=== PATIENT | male | born 1930 | race Caucasian/White ===

== ENCOUNTER 2017-02-24 13:07 | Inpatient (IN) | payer OTHER ==
[~2017-02-24] VITALS: Ht 182.9 cm; Wt 82.3 kg
--- NOTE | 2017-02-24 13:36 | DIAGNOSTIC IMAGING REPORT ---
PROCEDURE: CT HEAD WITHOUT CONTRAST INDICATION: TRAUMA/INJURY TECHNIQUE: Axial CT images were acquired through the head. Coronal and sagittal reformations were created. COMPARISON: None. FINDINGS: Moderate cerebral cortical atrophy. Minor hypodensity in the periventricular and subcortical white matter. Tiny focal patch of hypodensity in the right frontal lobe schmidt radiata. No focal cortical defects. Dystrophic bilateral basal ganglia calcification. No intracranial hemorrhage or extraaxial fluid collections. Ventricles are normal in size, shape and position. There is no mass, mass effect or midline shift. The sanchez-white matter differentiation is normal. There is no edema. Minimal calcific atherosclerosis of the intracranial internal carotid arteries. The calvarium is intact. The paranasal sinuses and mastoid air cells are normally aerated. The extracranial soft tissues and orbits are normal. IMPRESSION: 1. No CT evidence of acute intracranial process. 2. Age related involutional changes. 3. Small patch of chronic microvascular ischemic change in the right frontal lobe white matter. Otherwise minimal evidence of chronic microvascular ischemia. 4. Findings discussed with Dr. Back at [address] scans at this facility use dose modulation, iterative reconstruction, and/or weight-based dosing when appropriate to reduce radiation dose to as low as reasonably achievable.
--- NOTE | 2017-02-24 13:57 | DIAGNOSTIC IMAGING REPORT ---
PROCEDURE: XR HIP 2VW W W/O AP PELVIS-LT INDICATION: TRAUMA/INJURY TECHNIQUE: AP view of the pelvis and hips with lateral view of the left hip. COMPARISON: 07/25/2016 FINDINGS: LEFT HIP: Normal mineralization. No fracture. Normal bony alignment. Severe osteoarthritic degenerative change at the hip joint. No unusual adjacent calcifications. PELVIS: Normal mineralization. Impacted, mildly displaced fracture involving the right superior pubic ramus and probably nondisplaced fracture involving the right inferior pubic ramus. No definite left-sided pelvic fractures. Normal alignment. Moderate degenerative change at the right hip joint and L5-S1 articulation. The visible bowel gas pattern and pelvic soft tissues appear normal. IMPRESSION: 1. Intact left hip with severe osteoarthritic changes. 2. Right superior and probably inferior pubic rami fractures.
--- NOTE | 2017-02-24 14:01 | DIAGNOSTIC IMAGING REPORT ---
PROCEDURE: XR CHEST 1 VIEW INDICATION: HYPOXIA TECHNIQUE: Single view chest. 01:31 hours COMPARISON: 03/15/2016 FINDINGS: Normal heart. No central vascular congestion. Asymmetric right hemidiaphragm elevation, more extensive compared to the previous studies. Diffuse interstitial thickening bilaterally. No pneumothorax or visible effusion. Atelectatic change at the visible right lower lobe. Surgical clips in the left axilla. Grossly intact osseous structures. IMPRESSION: 1. Diffuse coarsening of interstitial markings may indicate interstitial inflammation/pneumonitis, or interstitial edema. Correlate clinically. 2. No evidence of acute trauma to the chest. 3. Chronic asymmetric right hemidiaphragm elevation with right base atelectasis.
--- NOTE | 2017-02-24 14:58 | ED ORDER SUMMARY ---
..... Patient: ERNIE CEVALLOS OrderSheet [facility] VisitID: [id number] [address] [place] [address] 86y, M Registration Date/Time: 02/24/2017 ORDER SHEET Weight: 86.1 kg (stated) Allergies: Muscle relaxer, Atorvastatin GENERAL ORDERS: Chest 1V Urgent (13:12 02/24/2017 Unique ROSEN) (Ack 13:19 Renny) (13:33 SReitz R.N.) Carpenter And Joiner (Continuous) (13:13 02/24/2017 Unique ROSEN) (13:33 SReitz R.N.) CT Head wo Cont Urgent (13:13 02/24/2017 Unique ROSEN) (Ack 13:19 Renny) (13:33 SReitz R.N.) Hip 2V Left w AP Pelvis Urgent (13:13 02/24/2017 Unique ROSEN) (Ack 13:19 Renny) (13:33 SReitz R.N.) CBC w Diff Urgent (13:13 02/24/2017 Unique ROSEN) (Ack 13:19 Renny) (13:21 SReitz R.N.) CMP Urgent (13:13 02/24/2017 Unique ROSEN) (Ack 13:19 Renny) (13:21 SReitz R.N.) UA-Culture if indicated Urgent (13:13 02/24/2017 Unique ROSEN) (Ack 13:19 Renny) PT with INR Urgent (13:13 02/24/2017 Unique ROSEN) (Ack 13:19 Renny) (13:21 SReitz R.N.) PTT Urgent (13:13 02/24/2017 Unique ROSEN) (Ack 13:19 Renny) (13:21 SReitz R.N.) CPK Urgent (13:13 02/24/2017 Unique ROSEN) (Ack 13:19 Renny) (13:21 SReitz R.N.) Troponin-I Urgent (13:13 02/24/2017 Unique ROSEN) (Ack 13:19 Renny) (13:21 SReitz R.N.) Oxygen (2 L/min) (NC) (13:13 02/24/2017 Unique ROSEN) (13:33 Elle Dejesus.N.) Pulse oximeter (13:13 02/24/2017 Unique ROSEN) (13:21 Elle Dejesus.N.) EKG - ER Stat (13:13 02/24/2017 Unique ROSEN) (Ack 13:19 Renny) (13:33 Elle Dejesus.N.) Lumbar Spine 2 or 3V Urgent (13:48 02/24/2017 Renny verbal order read back to Unique ROSEN) (13:49 Renny) MEDICATION ORDERS: IV FLUIDS: IV Saline Lock (13:13 02/24/2017 Unique ROSEN) (Ack 13:21 Elle Dejesus.N.) Dilaudid IV 0.5 mg (HIGH ALERT MEDICATION, NOW) (14:09 02/24/2017 Elle Chow verbal order read back to Unique ROSEN) (14:09 Elle Dejesus.N.) Dilaudid IV 0.5 mg (HIGH ALERT MEDICATION, NOW) (15:39 02/24/2017 Elle Dejesus.Maya verbal order read back to Unique ROSEN) (15:39 Elle R.N.) ORDER SHEET NOTES: [Electronically signed by Kemi Cali R.N. (17:04 02/24/2017)] [Electronically signed by Ras Back MD (20:41 02/24/2017)] [Electronically locked/signed by Kemi Cali R.N. (17:04 02/24/2017)]
--- NOTE | 2017-02-24 14:58 | ED CLINICAL REPORT ---
Clinical Report - Physicians/Mid Levels [facility] [address] [place] [place] [address] 02/24/2017 13:07 Patient: ERNIE CEVALLOS Time Seen: 13:12. Arrived- By ambulance. Historian- patient and EMS personnel. HISTORY OF PRESENT ILLNESS Location of injuries- left hip. Chief Complaint: FALL. The injury occurred just prior to arrival. Fell. Occurred at home. ( patient says that he had an improvised scaffolding that was about 6 Feet off of the ground. He miss stepped and fell to the ground landing flat on his back. He complains of severe pain in his pelvis and hips.). The patient complains of severe pain. No blow to the head, neck pain or loss of consciousness. Prehospital Treatment: ( EMS report that his oxygen saturations were in the high 80s when they first assessed him while he was lying supine.). REVIEW OF SYSTEMS No chills, fever, sweats, calf pain or chest pain. No cough, pedal edema, palpitations, abdominal pain or constipation. No diarrhea, nausea, vomiting or urinary problems. He has had difficulty breathing (chronically - He attributes this to a chronically elevated right hemidiaphragm). The patient has also had orthopnea. All systems otherwise negative, except as recorded above. PAST HISTORY PCP - JORGE MCNULTY Problems: Hypertension. Back Pain. Phimosis. Herniated Disk. CVA - Cerebrovascular Accident. PVC - Premature Venticular Complex(s). Hyperlipidemia. Arterial bruit. Dyspnea. Left hip pain. Prediabetic. Carpal Tunnel Syndrome. Osteoarthritis. Anemia. Abdominal Pain. Impingement syndrome of shoulder region. Sciatica. Medications: Levothyroxine Sodium Oral 50 mcg, daily. ProAir HFA Inhalation. Tamsulosin HCl Oral 0.4 mg, daily. CeleBREX Oral 200 mg, daily. MetFORMIN HCl Oral 500 mg, 2x a day. Pravastatin Sodium Oral 10 mg, at bedtime. Aspirin Oral (Tablet Chewable 81 mg) 1 tablet, daily. Fluticasone Propionate Nasal. Multivitamins Oral. Calcium-Vitamin D Oral. vitmain c plus. Nitroglycerin Sublingual, as needed. Metamucil Oral. Losartan Potassium Oral 50 mg, daily. Allergies: Atorvastatin. Muscle relaxer. SOCIAL HISTORY No alcohol use or drug use. Residence: he is the primary caregiver for his spouse who suffers from multiple medical issues. Is a local resident. Resides in a house. He lives with spouse. ADDITIONAL NOTES The nursing notes have been reviewed. PHYSICAL EXAM Vital Signs: 02/24/2017 13:12 BP: 151/87. HR: 110. RR: 18. O2 saturation: 98%. Temp: 97.5 F. Have been reviewed. Appearance: Alert. No acute distress. Head: Head non-tender. No swelling of head. Eyes: Pupils equal, round and reactive to light. EOM intact. ENT: No dental injury. Pharynx normal. Neck: Painless ROM. Non-tender. CVS: Heart sounds normal. Pulses normal. Respiratory: Breath sounds normal. Chest nontender. Abdomen: No visible injury. Soft and nontender. Bowel sounds normal. No organomegaly. No mass. Back: No tenderness. Skin: Skin intact. Skin warm and dry. Extremities: Pelvis: moderate tenderness with compression. Limited ROM right hip secondary to pain; limited ROM left hip secondary to pain. Neurovascular intact distally. Normal rectal exam. Right hip. Limited ROM secondary to pain (diminished flexion and internal rotation). Neurovascular intact distally. Left hip. Limited ROM secondary to pain (diminished flexion and internal rotation). Neurovascular intact distally. LABS, X-RAYS, AND EKG EKG: Rate: 86. Frequent ectopic beats. Premature ventricular contractions. First-degree atrioventricular block. Changes present when compared to prior EKG. (no PVCs were noted on a previous study of 19 January 2013). The study has been independently viewed by me. LS-Spine X-rays: (IMPRESSION: 1. Intact lumbar spine. 2. Stable alignment compared to the prior study. 3. Large anterior osteophytes. 4. Right superior pubic ramus fracture seen. 5. Aortic atherosclerosis.). The X-rays were interpreted by the radiologist and contemporaneously by me. Chest X-ray: (IMPRESSION: 1. Diffuse coarsening of interstitial markings may indicate interstitial inflammation/pneumonitis, or interstitial edema. Correlate clinically. 2. No evidence of acute trauma to the chest. 3. Chronic asymmetric right hemidiaphragm elevation with right base atelectasis.). The X-rays were interpreted by the radiologist and contemporaneously by me. Lt Hip X-ray: (IMPRESSION: 1. Intact left hip with severe osteoarthritic changes. 2. Right superior and probably inferior pubic rami fractures.). The X-rays were interpreted by the radiologist and contemporaneously by me. CT Head: (IMPRESSION: 1. No CT evidence of acute intracranial process. 2. Age related involutional changes. 3. Small patch of chronic microvascular ischemic change in the right frontal lobe white matter. Otherwise minimal evidence of chronic microvascular ischemia.). The study was interpreted by the radiologist and contemporaneously by me. Laboratory Tests: CBC w Diff: (CRISTIANO: 02/24/2017 13:20) ( MsgRcvd 02/24/2017 13:37) Final results Test Result Flag Units (Reference) WHITE BLOOD COUNT 6.9 K/uL (4.5-11.5) RED BLOOD COUNT 3.95 L M/uL (4.50-5.90) HEMOGLOBIN 12.1 L gm/dL (13.5-17.5) HEMATOCRIT 36.4 L % (41.0-53.0) MEAN CELL VOLUME 92 fL (80-100) MEAN CORPUSCULAR HGB 31 pg (26-34) MEAN CORPUSCULAR HGB CONC 33 g/dL (31-37) RED CELL DISTRIBUTION WIDTH 14.1 % (11.6-14.8) PLATELET COUNT 177 K/uL (150-400) NEUTROPHIL % 75.9 H % (50-75) LYMPH % 16.5 L % (25-40) MONO % 6.7 % (3-14) EOSINOPHIL % 0.6 % (0-4) BASOPHIL % 0.3 % (0-2) PT with INR: (CRISTIANO: 02/24/2017 13:20) ( MsgRcvd 02/24/2017 13:50) Final results Test Result Flag Units (Reference) INR 1.1 (0.8-1.2) Low Intensity Therapy: INR 1.5-2.0 PT range 18.5-23.1Mod.Intensity Therapy: INR 2.0-3.0 PT range 23.1-31.5High Intensity Therapy: INR 2.5-3.5 PT range 27.4-35.5High Intensity Therapy 2: INR 3.0-4.0 PT range 31.5-39.3 APTT 33 SECONDS (24-34) CMP: (CRISTIANO: 02/24/2017 13:20) ( MsgRcvd 02/24/2017 14:09) Final results Test Result Flag Units (Reference) GLUCOSE 137 H mg/dL (70-110) BUN 28 H mg/dL (7-18) CREATININE 1.5 H mg/dL (0.6-1.3) Estimated GFR 47.05 mL/min Estimated GFR- 57.03 mL/min Note: Persistent reduction over 3 months in eGFR<60 mL/min/1.73 m2 defines CKD. Patients with eGFR values>=60 mL/min/1.73 m2 may also have CKD if evidence ofpersistent proteinuria. Additional information may be foundat www.kidney.org. SODIUM 141 mmol/L (136-145) POTASSIUM 4.3 mmol/L (3.5-5.1) CHLORIDE 106 mmol/L (98-107) CARBON DIOXIDE 21 mmol/L (21-32) CALCIUM 8.6 mg/dL (8.5-10.1) TOTAL PROTEIN 6.7 g/dL (6.4-8.2) ALBUMIN 3.5 g/dL (3.3-5.0) BILIRUBIN, TOTAL 0.7 mg/dL (0.0-1.0) ALKALINE PHOSPHATASE 93 U/L (46-116) AST (SGOT) 30 U/L (15-37) ALT (SGPT) 57 U/L (12-78) CPK 370 H U/L (24-260) TROPONIN I <0.05 ng/mL (0.00-1.5) TROPONIN REFERENCE RANGE:<0.1 NEGATIVE0.1-1.5 INDETERMINANT>1.5 POSITIVE CK-MB 4.4 H ng/mL (0.5-3.2) %CKMB 1.2 % (0.0-4.0) . PROGRESS AND PROCEDURES Course of Care: Patient is stable. Discussed case with hospitalist, (Jcarlos). Reviewed test results and need for additional work-up. Agreed upon treatment plan, need for patient follow-up and decision to admit. Health care provider will see patient in hospital. Patient/family counseled. Disposition orders written (in [facility]). Disposition: Admitted. CLINICAL IMPRESSION Right superior ramus and inferior ramus pubic fracture. Fall from scaffold and on same level by stumbling. (Electronically signed by Ras Back MD 02/24/2017 20:41)
--- NOTE | 2017-02-24 14:58 | ED NURSING NOTES ---
Clinical Report - Nurses [facility] [address] [place] [address] 02/24/2017 13:07 Patient: ERNIE CEVALLOS TRIAGE Triage time 13:12. Acuity: LEVEL 2. Chief Complaint: FALL (Pt. states he was approx. 6 feet off the ground on a plank when he fell off. He denies LOC, neck pain at this time.). Alert. No acute distress. SEPSIS SCREEN: Sepsis Screen. Negative (no infection suspected/documented). HOANG COMA SCORE: Hoang Coma Scale: 15- eyes open spontaneously (4); best verbal response- oriented x 4 (5); best motor response- obeys commands (6). --13:19 Keim Cali R.N. 13:12 02/24/17. BP: 151/87. HR: 110. RR: 18. O2 saturation: 98%. Temp: 97.5 F. Pain level now 5/10. --13:19 Kemi Cali R.N. Weight: 86.1 kg stated. Height/Length: 72 inches Per Patient. BMI: 25.8. --13:18 Kemi Cali R.N. Medications Losartan Potassium Oral 50 mg, daily. --14:30 Kemi Cali R.N. Metamucil Oral. --14:34 Kemi Cali R.N. Nitroglycerin Sublingual, as needed. --14:35 Kemi Cali R.N. vitmain c plus. --14:35 Kemi Cali R.N. Calcium-Vitamin D Oral. --14:35 Kemi Cali R.N. Multivitamins Oral. --14:35 Kemi Cali R.N. Fluticasone Propionate Nasal. --14:35 Kemi Cali R.N. Aspirin Oral (Tablet Chewable 81 mg) 1 tablet, daily. --14:36 Kemi Cali R.N. Pravastatin Sodium Oral 10 mg, at bedtime. --14:36 Kemi Cali R.N. MetFORMIN HCl Oral 500 mg, 2x a day. --14:36 Kemi Cali R.N. CeleBREX Oral 200 mg, daily. --14:36 Kemi Cali R.N. Tamsulosin HCl Oral 0.4 mg, daily. --14:37 Kemi Cali R.N. ProAir HFA Inhalation. --14:37 Kemi Cali R.N. Levothyroxine Sodium Oral 50 mcg, daily. --14:37 Kemi Cali R.N. Allergies Muscle relaxer. --13:49 Kemi Cali R.N. Atorvastatin. --14:37 Kemi Cali R.N. History Arrived by EMS. Historian: patient. Unaccompanied. Primary physician (Dr. Garber). Location of injuries: lower back and left hip. This occurred today. Trauma activation: Modified Trauma Activation. called at 1310. PAST MEDICAL HX: Immunizations: up-to-date. SOCIAL HX: Smoker- current status unknown. NUTRITIONAL RISK ASSESSMENT: The nutritional risk assessment revealed no deficiencies. FUNCTIONAL ASSESSMENT: Functional assessment: no impairments noted. LEARNING NEEDS ASSESSMENT: The learning needs assessment revealed no barriers. --13:19 Kemi Cali R.N. Treatment CASHIER ASSISTANT: (backboard). --13:21 Kemi Cali R.N. PROBLEMS: Hypertension. Back Pain. Phimosis. Herniated Disk. CVA - Cerebrovascular Accident. PVC - Premature Venticular Complex(s). Hyperlipidemia. Arterial bruit. Coronary Artery Disease. Dyspnea. Left hip pain. Prediabetic. Carpal Tunnel Syndrome. Osteoarthritis. Anemia. Abdominal Pain. Impingement syndrome of shoulder region. Sciatica. --14:39 Kemi Cali R.N. Interventions ID band on patient. Transported via stretcher. --13:19 Kemi Cali R.N. PHYSICAL ASSESSMENT 13:12. To room via stretcher. GENERAL / NEURO / PSYCH: Alert. Oriented X 4. Appears in no acute distress. HEENT: Pupils equal, round and reactive to light. RESPIRATORY: Respirations not labored. CVS: Pulses within normal limits. Capillary refill less than 2 seconds. GI / : Abdomen soft and nontender. SKIN: Skin intact. Skin is warm and dry. --13:20 Kemi Cali R.N. NURSING PROGRESS NOTES 13:12. Patient gowned. Two patient identifiers checked. Call light placed in reach. Side rails up x 2. Bed placed in lowest position. Brakes of bed on. Patient ready for evaluation- chart flagged. --13:20 Kemi Cali R.N. 13:15 02/24/2017 Site #1 started via IV in the right antecubital space with an 18g angiocath, with aseptic technique and good blood return; one attempt. Blood drawn: rainbow set. Labeled in the presence of the patient and sent to the lab. Saline lock flushed with 10 mL saline. --13:20 Kemi Cali R.N. Patient transported to CT by stretcher with tech. (13:15). --13:25 Kemi Cali R.N. EKG time: (13:55). EKG was performed by a tech and shown to the ED physician. --14:00 Huong Vasquez 14:00 02/24/17. BP: 143/59. HR: 100. RR: 20. O2 saturation: 98%. --14:08 Kemi Cali R.N. 14:07 02/24/2017 Dilaudid (HYDROmorphone HCl PF) IVP 0.5 mg given over 1 minute(s) via site #1. Allergies verified, confirmed 5 rights and sedative warning given to the patient. IV patency established. IV site checked: no pain, redness, or swelling. IV flushed thoroughly pre- and post-medication administration. --14:09 Kemi Cali R.N. 14:16 02/24/2017 Dilaudid IVP Response: no adverse reaction pain is improving. The patient feels better. --14:16 Kemi Cali R.N. 14:30 02/24/17. BP: 118/82. HR: 115. RR: 26. O2 saturation: 96%. --14:40 Kemi Cali R.N. 15:35. ( Pt. reports being in "alot of pain." Notified provider orders recieved.). --15:38 Kemi Cali R.N. 15:39 02/24/2017 Dilaudid (HYDROmorphone HCl PF) IVP 0.5 mg given over 1 minute(s) via site #1. Allergies verified, confirmed 5 rights and sedative warning given to the patient. IV patency established. IV site checked: no pain, redness, or swelling. IV flushed thoroughly pre- and post-medication administration. --15:39 Kemi Cali R.N. 15:40 02/24/17. BP: 127/61. HR: 106. RR: 21. O2 saturation: 92% on nasal cannula at 2 liters/minute. --15:40 Kemi Cali R.N. DISPOSITION / DISCHARGE Report was given to a nurse via a phone call. Report included patient's care, treatment, medications, reviewed medication reconcilliation, and condition (including any recent changes or anticipated changes). All questions were answered. --16:47 Kemi Cali R.N. 16:58 02/24/2017 Site #[address] upon admission; patent, no pain and no signs of infiltration; flushes easily. --16:58 Kemi Cali R.N. 16:57 02/24/17. BP: 110/67. HR: 100. RR: 26. O2 saturation: 95%. Temp: 97.7 F. Pain level now 3/10. --16:58 Kemi Cali R.N. Admitted to Acute Care. Transported via stretcher by tech with O2. Patient's personal items; items were placed in belongings bag, given to the patient and transported with the patient. --16:59 Kemi Cali R.N. Departure time: 17:00. --17:04 Kemi Cali R.N. Locked/Released at 02/24/2017 17:04 by Kemi Cali R.N.
--- NOTE | 2017-02-24 14:58 | ED ORDER SUMMARY ---
..... Patient: ERNIE CEVALLOS OrderSheet [facility] VisitID: [id number] [address] [place] [address] 86y, M Registration Date/Time: 02/24/2017 ORDER SHEET Weight: 86.1 kg (stated) Allergies: Muscle relaxer, Atorvastatin GENERAL ORDERS: Chest 1V Urgent (13:12 02/24/2017 Unique ROSEN) (Ack 13:19 Renny) (13:33 SReitz R.N.) Barber Instructor (Continuous) (13:13 02/24/2017 Unique ROSEN) (13:33 SReitz R.N.) CT Head wo Cont Urgent (13:13 02/24/2017 Unique ROSEN) (Ack 13:19 Renny) (13:33 SReitz R.N.) Hip 2V Left w AP Pelvis Urgent (13:13 02/24/2017 Unique ROSEN) (Ack 13:19 Renny) (13:33 SReitz R.N.) CBC w Diff Urgent (13:13 02/24/2017 Unique ROSEN) (Ack 13:19 Renny) (13:21 SReitz R.N.) CMP Urgent (13:13 02/24/2017 Unique ROSEN) (Ack 13:19 Renny) (13:21 SReitz R.N.) UA-Culture if indicated Urgent (13:13 02/24/2017 Unique ROSEN) (Ack 13:19 Renny) PT with INR Urgent (13:13 02/24/2017 Unique ROSEN) (Ack 13:19 Renny) (13:21 SReitz R.N.) PTT Urgent (13:13 02/24/2017 Unique ROSEN) (Ack 13:19 Renny) (13:21 SReitz R.N.) CPK Urgent (13:13 02/24/2017 Unique ROSEN) (Ack 13:19 Renny) (13:21 SReitz R.N.) Troponin-I Urgent (13:13 02/24/2017 Unique ROSEN) (Ack 13:19 Renny) (13:21 SReitz R.N.) Oxygen (2 L/min) (NC) (13:13 02/24/2017 Unique ROSEN) (13:33 Elle Dejesus.N.) Pulse oximeter (13:13 02/24/2017 Unique ROSEN) (13:21 Elle Dejesus.N.) EKG - ER Stat (13:13 02/24/2017 Unique ROSEN) (Ack 13:19 Renny) (13:33 Elle Dejesus.N.) Lumbar Spine 2 or 3V Urgent (13:48 02/24/2017 Renny verbal order read back to Unique ROSEN) (13:49 Renny) MEDICATION ORDERS: IV FLUIDS: IV Saline Lock (13:13 02/24/2017 Unique ROSEN) (Ack 13:21 Elle Dejesus.N.) Dilaudid IV 0.5 mg (HIGH ALERT MEDICATION, NOW) (14:09 02/24/2017 Elle Chow verbal order read back to Unique ROSEN) (14:09 Elle Dejesus.N.) Dilaudid IV 0.5 mg (HIGH ALERT MEDICATION, NOW) (15:39 02/24/2017 Elle Dejesus.Maya verbal order read back to Unique ROSEN) (15:39 Elle R.N.) ORDER SHEET NOTES: [Electronically signed by Kemi Cali R.N. (17:04 02/24/2017)] [Electronically signed by Ras Back MD (20:41 02/24/2017)] [Electronically locked/signed by Kemi Cali R.N. (17:04 02/24/2017)]
--- NOTE | 2017-02-24 15:11 | DIAGNOSTIC IMAGING REPORT ---
PROCEDURE: XR LUMBAR SPINE 2 OR 3 VIEWS INDICATION: Fall off tractor TECHNIQUE: Three views of the lumbar spine COMPARISON: 07/25/2016 FINDINGS: No visible vertebral body fracture. Large anterior osteophytes, particularly L2-L4. Slight anterolisthesis L4-5. Trace retrolisthesis L2 on three. Otherwise normal alignment. Extensive ossification in the posterior elements from L3-S1. Calcification of the L4-5 disc. No acute appearing changes. Partially visualized is the right superior pubic ramus fracture. Heavy abdominal aortic atherosclerosis. Bowel gas pattern is normal. IMPRESSION: 1. Intact lumbar spine. 2. Stable alignment compared to the prior study. 3. Large anterior osteophytes. 4. Right superior pubic ramus fracture seen. 5. Aortic atherosclerosis.
[2017-02-24 17:26] VITALS: BP 136/57
[2017-02-24 20:42] VITALS: BP 123/71
--- NOTE | 2017-02-24 20:42 | ED MAR SUMMARY ---
..... Medication Administration Record [facility] [address] [place] [address] Patient: RENIE CEVALLOS Visit ID: [id number] 86y, M Weight: 86.1 kg Height/Length: 72 in BMI: 25.8 ALLERGIES: Muscle relaxer, Atorvastatin Given 14:07 02/24/2017 Kemi Cali R.N. Medication Administered: DILAUDID [IVP] (HYDROMORPHONE HCL PF), Dose: 0.5 mg IVP over 1 minute(s), Site: #1 right AC. Medication Ordered: Dilaudid IV 0.5 mg (HIGH ALERT MEDICATION, NOW). Given 15:39 02/24/2017 Kemi Cali R.N. Medication Administered: DILAUDID [IVP] (HYDROMORPHONE HCL PF), Dose: 0.5 mg IVP over 1 minute(s), Site: #1 right AC. Medication Ordered: Dilaudid IV 0.5 mg (HIGH ALERT MEDICATION, NOW).
--- NOTE | 2017-02-24 20:42 | ED MED RECONCILIATION SUMMARY ---
Patient: ERNIE CEVALLOS Medication Reconciliation Report [facility] VisitID: [id number] [address] [place] [address] 86y, M Registration Date/Time: 02/24/2017 Weight: 86.1 kg Height/Length: 72 in. BMI: 25.8 ALLERGIES: Atorvastatin, Muscle relaxer The patient's Home Medications are listed below: THE FOLLOWING MEDICATIONS NEED TO BE RECONCILED: Aspirin Oral (81 mg) 1 tablet, daily Calcium-Vitamin D Oral CeleBREX Oral 200 mg, daily Fluticasone Propionate Nasal Levothyroxine Sodium Oral 50 mcg, daily Losartan Potassium Oral 50 mg, daily Metamucil Oral MetFORMIN HCl Oral 500 mg, 2x a day Multivitamins Oral Nitroglycerin Sublingual Pravastatin Sodium Oral 10 mg, at bedtime ProAir HFA Inhalation Tamsulosin HCl Oral 0.4 mg, daily vitmain c plus The source(s) of the original Home Medication information: Not obtained. The following Medications were given to the patient in the Emergency Department: Dilaudid [IVP] IVP 0.5 mg, administered: 02/24/2017 2:07:00 PM Dilaudid [IVP] IVP 0.5 mg, administered: 02/24/2017 3:39:00 PM The following Medications were prescribed to the patient: None.
--- NOTE | 2017-02-24 20:42 | ED MED RECONCILIATION SUMMARY ---
Patient: ERNIE CEVALLOS Medication Reconciliation Report [facility] VisitID: [id number] [address] [place] [address] 86y, M Registration Date/Time: 02/24/2017 Weight: 86.1 kg Height/Length: 72 in. BMI: 25.8 ALLERGIES: Atorvastatin, Muscle relaxer The patient's Home Medications are listed below: THE FOLLOWING MEDICATIONS NEED TO BE RECONCILED: Aspirin Oral (81 mg) 1 tablet, daily Calcium-Vitamin D Oral CeleBREX Oral 200 mg, daily Fluticasone Propionate Nasal Levothyroxine Sodium Oral 50 mcg, daily Losartan Potassium Oral 50 mg, daily Metamucil Oral MetFORMIN HCl Oral 500 mg, 2x a day Multivitamins Oral Nitroglycerin Sublingual Pravastatin Sodium Oral 10 mg, at bedtime ProAir HFA Inhalation Tamsulosin HCl Oral 0.4 mg, daily vitmain c plus The source(s) of the original Home Medication information: Not obtained. The following Medications were given to the patient in the Emergency Department: Dilaudid [IVP] IVP 0.5 mg, administered: 02/24/2017 2:07:00 PM Dilaudid [IVP] IVP 0.5 mg, administered: 02/24/2017 3:39:00 PM The following Medications were prescribed to the patient: None.
--- NOTE | 2017-02-24 20:42 | ED DISCHARGE INSTRUCTIONS ---
Patient: ERNIE CEVALLOS General Instructions [facility] VisitID: [id number] [place] [address] 86y, M Registration Date/Time: 02/24/2017 Right superior ramus and inferior ramus pubic fracture. Fall from scaffold and on same level by stumbling. ADDITIONAL INFORMATION Mechanical Fall You have had a fall today. It appears that the cause is mechanical. That means that you slipped, tripped or lost your balance. If your fall had been due to fainting or a seizure, further tests would be required. Home Care: Rest today and resume your normal activities when you are feeling back to normal. If you were injured during the fall, follow the advice from your doctor regarding care of your injury. You may use acetaminophen (Tylenol) or ibuprofen (Motrin, Advil) to control pain, unless another pain medicine was prescribed. [NOTE: If you have chronic liver or kidney disease or ever had a stomach ulcer or GI bleeding, talk with your doctor before using these medicines.] Fall Prevention: Was there anything that caused your fall that can be fixed, removed, or replaced? Make your home safe by keeping walkways clear of objects you may trip over. Use non-slip pads under rugs. Do not walk in poorly lit areas. Do not stand on chairs or wobbly ladders. Use caution when reaching overhead or looking upward. This position can cause a loss of balance. Be sure your shoes fit properly, have non-slip bottoms and are in good condition. Be cautious when going up and down curbs, and walking on uneven sidewalks. If your balance is poor, consider using a cane or walker. Stay as active as you can. Balance, flexibility, strength, and endurance all come from exercise. They all play a role in preventing falls. Follow Up with your doctor or as advised by our staff. Get Prompt Medical Attention if any of the following occur: Repeated mechanical falls, or unexplained falls Dizziness, fainting or seizure Severe headache Chest pain or shortness of breath Palpitations (very rapid or very slow or irregular heartbeat) Blood in vomit, stools (black or red color) Weakness of an arm or leg or one side of the face Difficulty with speech or vision Pelvic Fracture, Stable You have a break (fracture) of the pelvic bone. Your fracture is stable because the bones are not out of place and there are no signs of serious internal bleeding. No surgery or other special treatment will be needed. As long as your pain is controlled by oral medicine, you can be treated at home. A broken pelvis will take about 6 to 8 weeks to heal and can be painful with movement for the first three to four weeks. Home Care: Bed rest and pain medicine is the only treatment required. Stay in bed for the first two to three days to reduce pain with movement. During this time, you will need help with bathing, toilet needs and meals. A bedpan or bedside commode may be easier to use than getting up to the bathroom. As soon as possible, begin sitting or walking to avoid problems with prolonged bed rest (muscle weakness, worsening back stiffness and pain, blood clots in the legs). A walker, crutches or cane will make walking easier in the first three weeks. Home health care may be available to provide in-home nursing services. Check with your doctor, the hospital's social service department or through private nursing agencies to see if your insurance will cover this kind of care. During the first two days after the injury there will probably be localized swelling and bruising on the skin over the pelvis. During this time apply an ICE PACK to the painful area for 20 minutes every 2-4 hours to reduce swelling and pain. Take pain medicine as directed. Call your doctor if your pain is not well controlled. A dose change or stronger medicine may be needed. Follow Up with your doctor in one week, or as advised by our staff, to be sure the bone is healing properly. [NOTE: If X-rays were taken, they will be reviewed by a radiologist. You will be notified of any new findings that may affect your care.] Get Prompt Medical Attention if any of the following occur: Pain becomes worse or you are unable to walk with assistance for more than three days. Blood in your urine or bleeding from the urethra (the opening where urine comes out) Difficulty passing urine or unable to pass stool due to pain Fever of 100.4F (38C) or higher, or as directed by your healthcare provider Swelling, pain or redness below your knee Chest pain or shortness of breath You have been given the following additional information: Fall, Mechanical Pelvic Fracture (Electronically signed by Ras Back MD 02/24/2017 20:41)
--- NOTE | 2017-02-24 20:42 | ED MAR SUMMARY ---
..... Medication Administration Record [facility] [address] [place] [address] Patient: ERNIE CEVALLOS Visit ID: [id number] 86y, M Weight: 86.1 kg Height/Length: 72 in BMI: 25.8 ALLERGIES: Muscle relaxer, Atorvastatin Given 14:07 02/24/2017 Kemi Cali R.N. Medication Administered: DILAUDID [IVP] (HYDROMORPHONE HCL PF), Dose: 0.5 mg IVP over 1 minute(s), Site: #1 right AC. Medication Ordered: Dilaudid IV 0.5 mg (HIGH ALERT MEDICATION, NOW). Given 15:39 02/24/2017 Kemi Cali R.N. Medication Administered: DILAUDID [IVP] (HYDROMORPHONE HCL PF), Dose: 0.5 mg IVP over 1 minute(s), Site: #1 right AC. Medication Ordered: Dilaudid IV 0.5 mg (HIGH ALERT MEDICATION, NOW).
[2017-02-24 22:00] VITALS: BP 119/68
--- NOTE | 2017-02-24 23:39 | HISTORY AND PHYSICAL ---
ADMITTED: 02/24/2017 CHIEF COMPLAINT: 1. Fall HISTORY OF PRESENT ILLNESS: An 86-year-old male fell while working in his garden. He had rigged up a plank off the back of his tractor to use to stand on while trimming a hedge. He turned while doing this and fell from it, landing about 6 feet below on his back on the grass. He was in marked pain and unable to move and lay there for about an hour before he could attract the attention of a neighbor. He was then transported to the emergency department. He reports pain in his back and pelvis and marked pain with any attempt to bend the back. MEDICAL/SURGICAL HISTORY: Past medical history remarkable for prediabetes, carpal tunnel syndrome, coronary artery disease, hyperlipidemia, CVA, hypertension, chronic back pain, sciatica, right shoulder impingement, history of prostate cancer, history of spinal tumors in 2000. Surgeries: Knee arthroscopy in 2011, circumcision in 2013, lumbar spine surgery for tumors, cardiac catheterization in 2013, gallbladder resection in 1990. MEDICATIONS: 1. Levothyroxine 50 mcg p.o. daily. 2. ProAir 2 puffs q.4 hours p.r.n. 3. Tamsulosin 0.4 mg p.o. daily. 4. Celebrex 200 mg p.o. daily. 5. Metformin 500 mg p.o. b.i.d. for prediabetes. 6. Pravastatin 10 mg p.o. at bedtime. 7. Aspirin 81 mg p.o. daily. 8. Fluticasone nasal spray 2 sprays per nostril daily for allergies. 9. Calcium with vitamin D once daily. 10. Vitamin C 1000 mg daily. 11. Nitrostat 0.4 mg sublingual p.r.n. chest pain. 12. Metamucil 1 teaspoon daily. 13. Glucosamine 1500 mg b.i.d. 14. Losartan 50 mg p.o. daily. ALLERGIES: 1. ATORVASTATIN. SOCIAL HISTORY: male. He takes care of his at home who needs 24- hour care. The patient is retired, lives in [place]. Enjoys painting, gardening, and growing fruits and vegetables. FAMILY HISTORY: Father had heart disease and at age 97. REVIEW OF SYSTEMS: HEENT: Denies hearing change, vision change, sore throat, sinus pain. Cardiac: Denies chest pain, palpitations, paroxysmal nocturnal dyspnea. Respiratory: Denies shortness of breath. He does admit to wheezing at times, but states it clears with coughing. Gastrointestinal: Denies nausea, vomiting, diarrhea, constipation, melena, or bright red blood per rectum. Genitourinary: Denies dysuria, frequency, or hematuria. PHYSICAL EXAMINATION: VITAL SIGNS: Blood pressure 151/87, heart rate 110, respirations 18, SaO2 98%, temperature 97.5. HEENT: Clear. NECK: Supple without adenopathy or thyromegaly. CHEST: Clear to auscultation and percussion. HEART: Regular rate and rhythm without murmur. ABDOMEN: Positive bowel sounds. Soft, nontender, without hepatosplenomegaly or masses. BACK: Straight without CVA tenderness. EXTREMITIES: Without cyanosis, clubbing, or edema. NEUROLOGIC: Intact and symmetric. The patient has marked pain with any movement at the hips or low back. As this was examined in the ED, I did not roll the patient over in the exam room, but no bruising was noted at the time of evaluation in the ED. LAB/IMAGING: Labs: WBC 6.9, hemoglobin 12.1, hematocrit 36.4, platelets 177. Sodium 141, potassium 4.3, chloride 106, bicarbonate 21, BUN 28, creatinine 1.5, glucose 137. AST 30, ALT 57, total bilirubin 0.7. CK 370, CK-MB 4.4, troponin less than 0.05. INR 1.1. Imaging: Lumbar spine x-ray reveals intact lumbar spine with large anterior osteophytes and right superior pubic ramus fracture and aortic atherosclerosis. Hip x-ray reveals intact left hip with severe osteoarthritic changes and right superior and probably inferior pubic rami fractures. CT of the head shows no evidence for intracranial process. A small patch of chronic microvascular ischemic changes in the right frontal lobe. Chest x-ray shows coarsening of interstitial markings consistent with possible pneumonitis or interstitial edema. No other changes. IMPRESSION: 1. Fall with multiple injuries and contusions. 2. Pubic ramus fracture, left. 3. History of prediabetes. 4. Coronary artery disease. 5. Hyperlipidemia. 6. Hypertension. 7. History of cerebrovascular accident. PLAN: Admit to [facility] for intravenous pain control, intravenous fluids, and monitoring. We will initiate physical therapy and obtain orthopedic consultation.
[2017-02-25] VITALS (7 sets, daily range): BP systolic 90–106; BP diastolic 38–59
--- NOTE | 2017-02-25 06:34 | DIAGNOSTIC IMAGING REPORT ---
PROCEDURE: XR CHEST 1 VIEW INDICATION: SHORTNESS OF BREATH TECHNIQUE: Portable AP view (0600 hours). COMPARISON: Compared to chest x-ray on 02/24/2017, 03/15/2016, and 01/14/2016. FINDINGS: There is moderate worsening in right basilar atelectasis/consolidation associated with worsening in chronic elevation of the right hemidiaphragm. Left lung is clear. Heart and mediastinum are normal. Thorax is normal. Surgical clips overlying the left axilla. IMPRESSION: 1. Moderate worsening in right basilar atelectasis and chronic elevation of the right hemidiaphragm. Consider diaphragmatic paralysis, obstructive atelectasis, or underlying pneumonia.
--- NOTE | 2017-02-25 11:48 | DIAGNOSTIC IMAGING REPORT ---
PROCEDURE: CT LUMBAR SPINE W/O CONTRAST INDICATION: Pelvic fracture, lumbar and sacral pain TECHNIQUE: Noncontrast axial images with sagittal and coronal reformations. COMPARISON: Lumbar spine x-ray 02/24/2017. FINDINGS: Osteopenia without fracture. Grade 1 L4-5 anterolisthesis. Partial calcification of the L3-4 disc. Large spurs most prominent at L1 to L2-3. L5 laminectomy with severe degenerative changes of the lower lumbar spine. Insufficiency fractures of the sacrum ( better evaluated on today's CT of the pelvis). L1-2: Facet arthropathy. Moderate bilateral foraminal stenosis. L2-3: Moderate facet arthropathy with severe bilateral foraminal stenosis. L3-4: Moderate facet arthropathy with moderate bilateral foraminal stenosis. L4-5: Grade 1 anterolisthesis with moderate broad-based disc bulge and severe facet arthropathy resulting in moderate right and severe left foraminal stenosis. There is severe spinal stenosis. L5-S1: Moderate broad-based disc bulge and facet arthropathy. Moderate bilateral foraminal stenosis. IMPRESSION: 1. Insufficiency fracture of the sacrum. Refer to [facility] to the pelvis. All CT scans at this facility use dose modulation, iterative reconstruction, and/or weight-based dosing when appropriate to reduce radiation dose to as low as reasonably achievable.
--- NOTE | 2017-02-25 11:54 | DIAGNOSTIC IMAGING REPORT ---
PROCEDURE: CT PELVIS WITHOUT CONTRAST INDICATION: Fall injury. TECHNIQUE: Axial scans with coronal and sagittal re-formations. COMPARISON: None. FINDINGS: Minimally displaced fractures of the right superior and inferior pubic rami. Insufficiency fractures of the sacrum bilaterally with mild displacement. There is also a transverse fracture through S2 with minor displacement. L5 laminectomy with posterior fusion. Severe degenerative changes of the lower lumbar spine. Grade 1 L4-5 of anterolisthesis with severe spinal stenosis. Moderate bilateral L4-5 and L5-S1 foraminal stenosis. Severe degenerative changes of both hips. Moderate sigmoid diverticulosis. Small amount of the right lower quadrant fluid which may be post traumatic. Normal bladder. IMPRESSION: 1. Insufficiency fracture of the sacrum with mild displacement 2. Minimally displaced fractures of the right superior and inferior pubic rami 3. Transverse S2 fracture with minor displacement 4. L5 laminectomy 5. Severe degenerative changes of the lower lumbar spine with severe L4-5 spinal stenosis 6. Results discussed with Dr. Garber
--- NOTE | 2017-02-25 16:21 | Consultation Report ---
Admission Admit Date 02/24/17 History Chief Complaint Right groin and posterior pelvic/low back pain History of Present Illness I was asked by Dr. Riky Garber to evaluate this 86-year-old male who fell off the back of his truck while gardening yesterday. He was brought to [facility] emergency department were AP pelvic x-rays revealed right superior and possibly inferior pubic rami fractures. He was also noted to have some hip degenerative joint disease and low back pain which is more localized over the sacral area. I asked Dr. Garber in order a pelvic CT scan to rule out posterior pelvic injury such as a sacral fracture and evaluate the lumbar spine as well. CT scan was done which shows a minimally displaced right sacral fracture extending transversely into S2 without compromising the neural foramen. To confirm the presence of superior and inferior minimally displaced right pubic rami fractures and degenerative joint disease in the hips. Also noted was evidence for prior L5 laminectomy with grade 1 anterolisthesis listhesis. Patient denies any numbness tingling or or true weakness. He is asking to be repositioned in bed to make it easier for him to use the handheld urinal. Patient History 1. Pubic ramus fracture 2. Sacral fracture, closed Social History Noncontributory Medications and Allergies Medications Current Medications Sig/Kirit Start time Last Medication Dose Route Stop Time Status Admin Tamsulosin HCl 0.4 MG QHS 02/25 2100 AC PO Atorvastatin Calcium 10 MG QPM 02/25 1800 AC PO Cephalexin 500 MG TID 02/25 1400 AC 02/25 PO 1441 Aspirin 81 MG DAILY 02/25 900 AC 02/25 PO 912 Celecoxib 200 MG DAILY 02/25 900 AC 02/25 PO 912 Losartan Potassium 50 MG DAILY 02/25 900 AC 02/25 PO 912 Metformin HCl 500 MG BIDWC 02/25 900 AC 02/25 PO 912 Levothyroxine Sodium 50 MCG DAILY@02/25 06 AC 02/25 PO 05 Pantoprazole Sodium 40 MG DAILY@02/25 06 AC 02/25 IV 0535 Docusate Sodium 250 MG BID PRN 02/24 2300 AC PO Albuterol/Ipratropium 3 ML RTQ4H PRN 02/24 2245 AC 02/25 IN 0059 Acetaminophen 650 MG Q6H PRN 05/08 2230 AC 02/25 PO 0132 Ondansetron HCl 4 MG Q6H PRN 02/24 2230 IV Hydromorphone HCl 0.5 MG Q2H PRN 02/24 1900 02/25 IV 0913 Hydromorphone HCl 1 MG Q2H PRN 02/24 190 02/25 IV 0535 Allergies Uncoded Allergies: muscle relaxers (changed blood work/ VERY REMOTE HX.. 07/26/14) Review of Systems Musculoskeletal Back Pain. Denies: Leg Pain, Foot Pain. Skin Denies: Lesions. Neurological Denies: Weakness, Numbness, Change in speech, Confusion. Physical Exam Vital Signs / I&Os Vital Signs Date Time Temp Pulse Resp B/P Pulse O2 O2 Flow FiO2 Ox Delivery Rate 02/25 1430 36.7 90 20 99/49 95 Mask 8.0 02/25 1354 36.8 96 24 90/44 93 Mask 8.0 02/25 0900 8.0 02/25 0753 Mask 7.0 02/25 0623 36.8 95 22 106/59 93 Mask 7.0 02/25 0423 101/48 02/25 0310 37.4 18 95/47 94 Mask 7.0 02/25 0200 93 Mask 7.0 02/25 0100 4.0 02/25 0100 102 28 87 Nasal 5.0 Cannula 02/25 0059 6.0 02/24 2227 2.0 02/24 2200 36.8 96 16 119/68 94 Nasal 4.0 Cannula 02/24 2044 92 02/24 2042 100 18 123/71 91 02/24 1726 36.4 96 24 136/57 86 Nasal 2.0 Cannula I&O 02/25 0000 02/24 1600 02/24 0800 Intake Total 0 Output Total 0 Balance 0 General Appearance Alert, Oriented X3, Cooperative, No acute distress HEENT Atraumatic Lungs Normal air movement Pelvic tender in right groin and right posterior pelvis. Extremities no apparent limb length or rotational asymmetry of the lower extremities. Skin No Breakdown, No Significant Lesions Neurological Sensation intact, able to fire bilateral ankle dorsiflexors, plantar flexors, EHL and FHL. Psych/Mental Status Mental status normal, Mood normal LAB Results Laboratory Tests 02/25 02/25 0555 0555 Chemistry Plasma Sodium (136 - 145 mmol/L) 141 Plasma Potassium (3.5 - 5.1 mmol/L) 5.0 Plasma Chloride (98 - 107 mmol/L) 108 CO2 (Enzymatic) (21 - 32 mmol/L) 21 BUN (7 - 18 mg/dL) 33 Creatinine (0.6 - 1.3 mg/dL) 1.6 Est GFR ( Amer) (mL/min) 52.93 Est GFR (Non-Af Amer) (mL/min) 43.67 Glucose (70 - 110 mg/dL) 164 Plasma Calcium (8.5 - 10.1 mg/dL) 7.9 Total Bilirubin (0.0 - 1.0 mg/dL) 1.2 AST (15 - 37 U/L) 28 ALT (12 - 78 U/L) 51 Alkaline Phosphatase (46 - 116 U/L) 66 B-Natriuretic Peptide (5 - 100 pg/ml) 218 Total Protein (6.4 - 8.2 g/dL) 6.0 Albumin (3.3 - 5.0 g/dL) 3.1 Hematology WBC (4.5 - 11.5 K/uL) 9.4 RBC (4.50 - 5.90 M/uL) 3.63 Hgb (13.5 - 17.5 gm/dL) 11.1 Hct (41.0 - 53.0 %) 33.5 MCV (80 - 100 fL) 92 MCH (26 - 34 pg) 31 RDW (11.6 - 14.8 %) 14.2 Neut % (Auto) (50 - 75 %) 79.6 Lymph % (Auto) (25 - 40 %) 14.0 Falls % (Auto) (3 - 14 %) 4.7 Eos % (Auto) (0 - 4 %) 1.6 Baso % (Auto) (0 - 2 %) 0.1 Plt Count, EDTA (150 - 400 K/uL) 142 PUBS MCHC (31 - 37 g/dL) 33 Imaging I have reviewed the x-rays and pelvic CT and agree with the radiologist's report as described above in the history of present illness. He has acute right minimally displaced superior and inferior pubic rami fractures and as well as a minimally displaced right sacral fracture extending across S2. Assessment and Plan Problem List 1. Pubic ramus fracture Qualifiers Encounter type: initial encounter Fracture type: closed Laterality: right Qualified Code: S32.591A - Other specified fracture of right pubis, initial encounter for closed fracture Onset Date 02/24/17 Status Acute Plan Fractures will be treated nonoperatively I believe it is safe for him to be weightbearing as tolerated on bilateral lower extremities and up with physical therapy. This will be painful but at least it will help to minimize the complications of bedrest such as decubitus ulcers, thromboembolic disease, pneumonia and general deconditioning. Physical therapy should work with him with a walker and fall precautions. After he has been up weightbearing with physical therapy we will repeat an AP pelvis with inlet and outlet x-rays to ensure there is no significant change in alignment of his fractures. I anticipate that it will take a minimum of 6 weeks for these fractures to heal. Patient will continue with his calcium and vitamin D supplementation. Pain medication will be managed by the primary service. Recommend thromboembolic prophylaxis with ambulation, pneumatic compression devices and if not contraindicated enteric-coated aspirin 325 mg twice daily for 6 weeks or until ambulating regularly. 2. Sacral fracture, closed Qualifiers Encounter type: initial encounter Zone of sacrum fracture: unspecified portion of sacrum Qualified Code: S32.10XA - Unspecified fracture of sacrum, initial encounter for closed fracture Onset Date 02/24/17 Status Acute Plan see pubic rami fracture treatment above
[2017-02-26 02:06] VITALS: BP 89/51
[2017-02-26 06:42] VITALS: BP 92/53
--- NOTE | 2017-02-26 07:05 | Progress Note ---
Subjective General 86YO ADMITTED WITH BACK PAIN POST FALL. Pubic ramus fracture diagnosed in ER. Pt had intractable pain and inability to transfer or roll over due to pain. Now notes pain med controls pain briefly but cannot tolerate movement. Had SOB during night after being moved. 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 he says he has always had difficulty breathing while lying flat. Feels better with reverse trendelenberg. Denies CP/palp/sob, nausea or vomiting at present. Wearing O2 mask. CXR on admit showed atelectasis vs early pneumonitis. Repeat CXR shows slight worsening of same. Physical Exam Vital Signs / I&Os Vital Signs Date Time Temp Pulse Resp B/P Pulse O2 O2 Flow FiO2 Ox Delivery Rate 02/25 0623 98.2 95 22 106/59 93 Mask 7.0 02/25 0423 101/48 02/25 0310 99.3 18 95/47 94 Mask 7.0 02/25 0200 93 Mask 7.0 02/25 0100 102 28 87 Nasal 5.0 Cannula 02/25 0059 6.0 02/24 2227 2.0 02/24 2200 98.2 96 16 119/68 94 Nasal 4.0 Cannula 02/24 2044 92 02/24 2042 100 18 123/71 91 02/24 1726 97.5 96 24 136/57 86 Nasal 2.0 Cannula I&O 02/24 0800 02/24 1600 02/25 0000 Intake Total 0 Output Total 0 Balance 0 General Appearance Alert, Oriented X3, Moderate distress Lungs Clear to auscultation Cardiovascular Regular rate and rhythm Abdomen Normal bowel sounds, Soft, No tenderness Extremities No edema, Pain with motion of back. Skin No Rashes LAB Results Laboratory Tests 02/24 02/25 02/25 1320 0555 0555 Chemistry Plasma Sodium (136 - 145 mmol/L) 141 141 Plasma Potassium (3.5 - 5.1 mmol/L) 4.3 5.0 Plasma Chloride (98 - 107 mmol/L) 106 108 CO2 (Enzymatic) (21 - 32 mmol/L) 21 21 BUN (7 - 18 mg/dL) 28 33 Creatinine (0.6 - 1.3 mg/dL) 1.5 1.6 Est GFR ( Amer) (mL/min) 57.03 52.93 Est GFR (Non-Af Amer) (mL/min) 47.05 43.67 Glucose (70 - 110 mg/dL) 137 164 Plasma Calcium (8.5 - 10.1 mg/dL) 8.6 7.9 Total Bilirubin (0.0 - 1.0 mg/dL) 0.7 1.2 AST (15 - 37 U/L) 30 28 ALT (12 - 78 U/L) 57 51 Alkaline Phosphatase (46 - 116 U/L) 93 66 Creatine Kinase (24 - 260 U/L) 370 CK-MB (CK-2) (0.5 - 3.2 ng/mL) 4.4 CK/CKMB % Calc (0.0 - 4.0 %) 1.2 Troponin (0.00 - 1.5 ng/mL) <0.05 B-Natriuretic Peptide (5 - 100 pg/ml) 218 Total Protein (6.4 - 8.2 g/dL) 6.7 6.0 Albumin (3.3 - 5.0 g/dL) 3.5 3.1 Coagulation INR (0.8 - 1.2) 1.1 APTT (24 - 34 SECONDS) 33 Hematology WBC (4.5 - 11.5 K/uL) 6.9 9.4 RBC (4.50 - 5.90 M/uL) 3.95 3.63 Hgb (13.5 - 17.5 gm/dL) 12.1 11.1 Hct (41.0 - 53.0 %) 36.4 33.5 MCV (80 - 100 fL) 92 92 MCH (26 - 34 pg) 31 31 RDW (11.6 - 14.8 %) 14.1 14.2 Neut % (Auto) (50 - 75 %) 75.9 79.6 Lymph % (Auto) (25 - 40 %) 16.5 14.0 [place] % (Auto) (3 - 14 %) 6.7 4.7 Eos % (Auto) (0 - 4 %) 0.6 1.6 Baso % (Auto) (0 - 2 %) 0.3 0.1 Plt Count, EDTA (150 - 400 K/uL) 177 142 PUBS MCHC (31 - 37 g/dL) 33 33 Assessment and Plan Problem List 1. Fall Plan Persistent pain. R/o pneumonitis. 2. Pubic ramus fracture Qualifiers Encounter type: initial encounter Fracture type: closed Laterality: right Qualified Code: S32.591A - Other specified fracture of right pubis, initial encounter for closed fracture Status Acute Onset Date 02/24/17 Plan Will discuss with ortho for consult.
--- NOTE | 2017-02-26 07:29 | Progress Note ---
Subjective General 86YO ADMITTED WITH BACK PAIN POST FALL. Pubic ramus fracture diagnosed in ER. Pt had intractable pain and inability to transfer or roll over due to pain. Now notes pain med controls pain briefly but cannot tolerate movement. Had SOB during night after being moved. 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 Hx difficulty breathing while lying flat. Improved with reverse trendelenberg. CXR on admit showed atelectasis vs early pneumonitis. Repeat CXR showed slight worsening of same. Phone consult done with Dr. Avila who will see patient. He recommended CT pelvis and LS spine which were done and showed Superior and Inferior pubic left ramus fx and Sacral ala fx on left and transverse S2 fracture. Pain controlled with IV meds. Pt denies nausea, sob or cp but is eating little due to positional discomfort with swallowing. Pt worried about and dog who are being cared for by friends through today but pt is unsure if dtr can get here from [facility] to care for them. Physical Exam Vital Signs / I&Os Vital Signs Date Time Temp Pulse Resp B/P Pulse O2 O2 Flow FiO2 Ox Delivery Rate 02/26 0642 98.1 86 20 92/53 93 Mask 8.0 02/26 0224 Mask 8.0 02/26 0206 98.2 104 19 89/51 92 Mask 8.0 02/25 2235 99.0 82 17 97/48 93 Mask 8.0 02/25 2024 8.0 02/25 1800 99.3 99 20 98/38 92 Mask 8.0 02/25 1430 98.1 90 20 99/49 95 Mask 8.0 02/25 1354 98.2 96 24 90/44 93 Mask 8.0 02/25 0900 8.0 02/25 0753 Mask 7.0 I&O 02/25 0800 02/25 1600 02/26 0000 Intake Total 1296 410 480 Output Total 295 325 50 Balance 1001 85 430 General Appearance Alert, Oriented X3, Cooperative Lungs Clear to auscultation Cardiovascular Regular rate and rhythm Abdomen Normal bowel sounds, Soft, No tenderness Extremities No edema Skin No Rashes LAB Results Laboratory Tests 02/26 0550 Chemistry Plasma Sodium (136 - 145 mmol/L) 139 Plasma Potassium (3.5 - 5.1 mmol/L) 4.6 Plasma Chloride (98 - 107 mmol/L) 107 CO2 (Enzymatic) (21 - 32 mmol/L) 22 BUN (7 - 18 mg/dL) 42 Creatinine (0.6 - 1.3 mg/dL) 1.8 Est GFR ( Amer) (mL/min) 46.21 Est GFR (Non-Af Amer) (mL/min) 38.12 Glucose (70 - 110 mg/dL) 122 Plasma Calcium (8.5 - 10.1 mg/dL) 7.7 Total Bilirubin (0.0 - 1.0 mg/dL) 0.8 AST (15 - 37 U/L) 68 ALT (12 - 78 U/L) 53 Alkaline Phosphatase (46 - 116 U/L) 59 Total Protein (6.4 - 8.2 g/dL) 5.6 Albumin (3.3 - 5.0 g/dL) 2.7 Hematology WBC (4.5 - 11.5 K/uL) 7.9 RBC (4.50 - 5.90 M/uL) 3.03 Hgb (13.5 - 17.5 gm/dL) 9.4 Hct (41.0 - 53.0 %) 27.9 MCV (80 - 100 fL) 92 MCH (26 - 34 pg) 31 RDW (11.6 - 14.8 %) 13.9 Neut % (Auto) (50 - 75 %) 74.1 Lymph % (Auto) (25 - 40 %) 16.0 [place] % (Auto) (3 - 14 %) 4.5 Eos % (Auto) (0 - 4 %) 5.2 Baso % (Auto) (0 - 2 %) 0.2 Plt Count, EDTA (150 - 400 K/uL) 106 PUBS MCHC (31 - 37 g/dL) [address] pelvis and sacrum: See reports. Assessment and Plan Problem List 1. Sacral fracture, closed Qualifiers Encounter type: initial encounter Zone of sacrum fracture: unspecified portion of sacrum Qualified Code: S32.10XA - Unspecified fracture of sacrum, initial encounter for closed fracture Status Acute Onset Date 02/24/17 Plan Ortho consult pending. Continue bedrest and IV pain control and advance per ortho and PT. Will start oral meds for pain. 2. Pubic ramus fracture Qualifiers Encounter type: initial encounter Fracture type: closed Laterality: right Qualified Code: S32.591A - Other specified fracture of right pubis, initial encounter for closed fracture Status Acute Onset Date 02/24/17 Plan As per above.
[2017-02-26 10:32] VITALS: BP 94/54
--- NOTE | 2017-02-26 13:13 | Progress Note ---
Subjective General Had severe pain and "both legs went completely numb" whe PT was sitting pt up to edge of bed. Did not even bear any weight or stand. PT recomending SNF per RN. He also c/o nerve pain in R LE per RN and Dr. Garber will Rx neurontin as I suggested. Able to void into urinal. Constitutional Denies: Fever, Chills, Sweats, Weakness. Neurological Numbness. Denies: Weakness, Incoordination, Change in speech, Confusion, Seizures, Other (numbness and pain now resolved). Physical Exam Vital Signs / I&Os Vital Signs Date Time Temp Pulse Resp B/P Pulse O2 O2 Flow FiO2 Ox Delivery Rate 02/26 1032 36.7 83 20 94/54 92 Mask 8.0 02/26 0814 8.0 02/26 0810 Mask 8.0 02/26 0642 36.7 86 20 92/53 93 Mask 8.0 02/26 0224 Mask 8.0 02/26 0206 36.8 104 19 89/51 92 Mask 8.0 02/25 2235 37.2 82 17 97/48 93 Mask 8.0 02/25 2024 8.0 02/25 1800 37.4 99 20 98/38 92 Mask 8.0 02/25 1430 36.7 90 20 99/49 95 Mask 8.0 02/25 1354 36.8 96 24 90/44 93 Mask 8.0 I&O 02/26 0000 02/25 1600 02/25 0800 Intake Total 804 242 2045 Output Total 50 325 295 Balance 664 30 8027 General Appearance Alert, Oriented X3, Cooperative, No acute distress Neurological Normal speech, Normal tone, Able fire B ADF, APF, EHL & FHL. SILT B feet all dermatomes. Psych/Mental Status Mental status normal, Mood normal, Anxious about 's care needs being met while he is unable to assist her. LAB Results Laboratory Tests 02/26 0550 Chemistry Plasma Sodium (136 - 145 mmol/L) 139 Plasma Potassium (3.5 - 5.1 mmol/L) 4.6 Plasma Chloride (98 - 107 mmol/L) 107 CO2 (Enzymatic) (21 - 32 mmol/L) 22 BUN (7 - 18 mg/dL) 42 Creatinine (0.6 - 1.3 mg/dL) 1.8 Est GFR ( Amer) (mL/min) 46.21 Est GFR (Non-Af Amer) (mL/min) 38.12 Glucose (70 - 110 mg/dL) 122 Plasma Calcium (8.5 - 10.1 mg/dL) 7.7 Total Bilirubin (0.0 - 1.0 mg/dL) 0.8 AST (15 - 37 U/L) 68 ALT (12 - 78 U/L) 53 Alkaline Phosphatase (46 - 116 U/L) 59 Total Protein (6.4 - 8.2 g/dL) 5.6 Albumin (3.3 - 5.0 g/dL) 2.7 Hematology WBC (4.5 - 11.5 K/uL) 7.9 RBC (4.50 - 5.90 M/uL) 3.03 Hgb (13.5 - 17.5 gm/dL) 9.4 Hct (41.0 - 53.0 %) 27.9 MCV (80 - 100 fL) 92 MCH (26 - 34 pg) 31 RDW (11.6 - 14.8 %) 13.9 Neut % (Auto) (50 - 75 %) 74.1 Lymph % (Auto) (25 - 40 %) 16.0 [place] % (Auto) (3 - 14 %) 4.5 Eos % (Auto) (0 - 4 %) 5.2 Baso % (Auto) (0 - 2 %) 0.2 Plt Count, EDTA (150 - 400 K/uL) 106 PUBS MCHC (31 - 37 g/dL) 34 Assessment and Plan Problem List 1. Pubic ramus fracture Qualifiers Encounter type: initial encounter Fracture type: closed Laterality: right Qualified Code: S32.591A - Other specified fracture of right pubis, initial encounter for closed fracture Status Acute Onset Date 02/24/17 Plan Continue pain management and PT. Anticipate DC to SNF. Will recheck pelvic x- rays after up with PT. 2. Sacral fracture, closed Qualifiers Encounter type: initial encounter Zone of sacrum fracture: unspecified portion of sacrum Qualified Code: S32.10XA - Unspecified fracture of sacrum, initial encounter for closed fracture Status Acute Onset Date 02/24/17 Plan see pubic rami fx plan. The numbness and nerve pain distribution is not consistent with his fx which at most would involve the RIGHT ONLY S2 and possibly S1 nerve roots and may have bleeding or swelling around the R lower lumbar nerves as they traverse the over the sacral alar. Will continue to allow WBAT to minimize the rtisks of bed rest as patient will self regulate weight bearing based on pain. If he develops any OBJECTIVE neurologic deficit will decrease to TDWB and repeat x-rays.
[2017-02-26 14:23] VITALS: BP 91/54
[2017-02-26 18:18] VITALS: BP 90/47
[2017-02-26 22:55] VITALS: BP 101/56
[2017-02-27 01:42] VITALS: BP 99/67
[2017-02-27] MEDS ORDERED: CEPHALEXIN500 MG PO (06:49)
[2017-02-27] MEDS ORDERED: IPRATROPIUM BROMIDE/ IN (06:51)
[2017-02-27] MEDS ORDERED: TAMSULOSIN HCL0.4 MG PO (06:51)
[2017-02-27] MEDS ORDERED: ATORVASTATIN CA10 MG PO (06:52)
[2017-02-27] MEDS ORDERED: ASPIRIN81 M1 PO (06:53)
[2017-02-27] MEDS ORDERED: CELEBREX200 MG PO (06:53)
[2017-02-27] MEDS ORDERED: DOCUSATE SODIU250 MG PO (06:55)
[2017-02-27] MEDS ORDERED: OXYCODONE/ACETA1 TA1 PO (06:55)
[2017-02-27 06:56] VITALS: BP 101/54
[2017-02-27] MEDS ORDERED: PROTONIX40 M1 IV (06:56)
[2017-02-27] MEDS ORDERED: LEVOTHYROXINE50 MCG PO (06:56)
[2017-02-27] MEDS ORDERED: GLUCOPHAGE500 MG PO (06:57)
--- NOTE | 2017-02-27 07:00 | Provider's Discharge Care Plan ---
Problem, Goal, Plan Problem List 1. Pre-diabetes Goals: Improve disease control Instructions: Take meds as directed 2. Hyperlipidemia Goals: Improve disease control Instructions: Take meds as directed 3. Urinary retention Goals: Improved health/wellness Instructions: Take meds as directed, Straight cath bid prn retention 4. Pneumonia Goals: Improve disease control Instructions: Take meds as directed 5. Sacral fracture, closed Goals: Improve disease control Instructions: Take meds as directed, Physical therapy 6. Pubic ramus fracture Goals: Improve disease control Instructions: Take meds as directed, Physical therapy
--- NOTE | 2017-02-27 07:41 | DISCHARGE SUMMARY ---
ADMIT DATE: 02/24/2017 DISCHARGE DATE: 02/27/2017 ADMITTING DIAGNOSES: 1. Fall with multiple injuries and contusions. 2. Pubic ramus fracture, left. 3. History of prediabetes 4. History of coronary artery disease. 5. History of hyperlipidemia. 6. History of hypertension. 7. History of cerebrovascular accident. DISCHARGE DIAGNOSES: 1. Fall with multiple injuries and contusions. 2. Superior and inferior left pubic ramus fracture. 3. Sacral ala fracture and transverse S2 fracture, nondisplaced. 4. Prediabetes. 5. Hyperlipidemia. 6. Hypertension. 7. History of coronary artery disease and CPA. 8. Pneumonitis. Diagnosed during the hospital stay, probably possibly related to pulmonary contusion. BRIEF HISTORY: The patient was admitted with a fall, marked pain, and inability to ambulate or transfer. HOSPITAL COURSE: Emergency department evaluation showed fractures in pubic ramus The patient was admitted for IV pain control. The patient's pain pattern seemed to be more in the back, then in the pubic ramus area. Therefore, orthopedic consultation was obtained with Dr. Avila. Recommendation was obtained for CT pelvis and lumbar spine. This confirmed a pubic ramus fracture on the left, inferior and superior, but also showed nondisplaced fractures of the left sacral ala and S2. The patient had marked pain during the hospital stay, controlled initially with IV and then with oral pain medications. Physical therapy was ordered and worked with the patient. The patient remained able to tolerate only very little movement and had marked pain with sitting up on the side of bed. Rehab was therefore clearly indicated and arrangements were made for rehab through [facility] and consultation for discharge planning. During the hospital stay, the patient's blood sugars remained relatively stable. He did, however, have some problems with urinary retention. He has had some difficulty with this problem before and has had prostate surgery in the past. With the pain medication and inability to get to a vertical position, that increased his difficulty in voiding. He did require a straight catheterization once for urinary retention. Additionally during the hospital stay, the patient had some shortness of breath. 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 This was aggravated by his injury and pain. Chest x-ray showed atelectasis on admission. This appeared to have worsened to pneumonitis. He was therefore started on antibiotics initially with 1 dose of ceftriaxone and then with oral cephalexin, which he tolerated well. He also appeared to benefit from keeping the bed slightly elevated. Additionally, the patient was started on tamsulosin to help improve bladder function. DISPOSITION: [facility]. DISCHARGE MEDICATIONS/INSTRUCTIONS: Discharge medications: Cephalexin 500 mg p.o. t.i.d. Ipratropium/albuterol 3 mL nebulized 4 hours p.r.n. Tamsulosin 0.4 mg p.o. at bedtime. Atorvastatin 10 mg p.o. q. p.m. Aspirin 81 mg p.o. daily. Celebrex 200 mg p.o. daily. Oxycodone/acetaminophen 5/325 two p.o. q.4 hours p.r.n. pain. DOS 250 mg p.o. b.i.d. Pantoprazole 40 mg p.o. daily. Levothyroxine 50 mcg p.o. daily. Metformin 500 mg p.o. b.i.d. Special instructions: Physical therapy and rehabilitation per [facility].
[2017-02-27 10:20] VITALS: BP 107/54
== END 2017-02-27 10:45 | DRG 963 ==
LOC: ED SRH 13:07 → TRANS SRH 15:08 → ACUTE2 SRH 17:17
PROVIDERS: ADMIT Emergency Medicine
DX: S32.110A Nondisplaced Zone I fracture of sacrum, initial encounter for closed fracture (principal); S32.130A Nondisplaced Zone III fracture of sacrum, initial encounter for closed fracture; S32.591A Other specified fracture of right pubis, initial encounter for closed fracture; S27.321A Contusion of lung, unilateral, initial encounter; W12.XXXA Fall on and from scaffolding, initial encounter; J18.9 Pneumonia, unspecified organism; Y93.H2 Activity, gardening and landscaping; Y92.007 Garden or yard of unspecified non-institutional (private) residence as the place of occurrence of the external cause; Y99.8 Other external cause status; R73.03 Prediabetes; I10 Essential (primary) hypertension; E78.5 Hyperlipidemia, unspecified